=== PATIENT | male | born 1935 | race Caucasian/White ===

== ENCOUNTER 2022-06-19 12:29 | Emergency (ER) | payer MEDICAID, OTHER ==
[~2022-06-19] VITALS: Ht 170.2 cm; Wt 70.0 kg
[2022-06-19 12:38] VITALS: BP 113/56
[2022-06-19 14:25] LABS: BASOPHILS % 0.5 % (0.0-2.0); EOSINOPHILS % 1.8 % (0.0-5.0); HEMATOCRIT. 32.4 % (42.0-52.0); MEAN CORPUSCULAR HEMOGLOBIN 27.3 pg (28.0-32.0); MEAN CORPUSCULAR VOLUME 88.4 fL (80.0-94.0); MEAN PLATELET VOLUME 9.7 fl (7.4-10.4); MONOCYTES % 10.6 % (2.0-8.0); NEUTROPHILS % 78.1 % (40.0-76.0); PLATELET 502 x1000/uL (130-400); RED BLOOD CELL COUNT 3.67 mill/uL (4.7-6.1); RED CELL DISTRIBUTION WIDTH 26.5 % (11.6-14.6)
[2022-06-19 14:34] LABS: CHLORIDE 112 mEq/L (98-107)
[2022-06-19 14:55] LABS: PLATELET ESTIMATE INCREASED
== END 2022-06-19 16:30 | disposition left against medical advice (07) ==
LOC: ER 12:29 → SUPCPDRO 14:11 → ER 16:30
DX: Z53.21 Procedure and treatment not carried out due to patient leaving prior to being seen by health care provider (principal); M79.89 Other specified soft tissue disorders; Z86.718 Personal history of other venous thrombosis and embolism; Z79.01 Long term (current) use of anticoagulants
CPT/HCPCS: 36415; 80053; 85025; 99283